=== PATIENT | male | born 1985 | race African-American/Black ===

== ENCOUNTER 2019-12-22 10:48 | Emergency (ER) | payer SELFPAY ==
[~2019-12-22] VITALS: Ht 182.9 cm; Wt 80.0 kg
[2019-12-22] MEDS ORDERED: ONDANSETRON PF 4 MG/2 ML VIAL. IV ONE (11:00)
[2019-12-22] MEDS ORDERED: IV NORMAL SALINE 1000ML BAG 1,000 ML IV ONE (11:00)
[2019-12-22] MEDS ORDERED: HALOPERIDOL LACTATE 5 MG/ML VIAL. IM ONE (12:00)
[2019-12-22 12:15] LABS: BASO % 1 % (0-3); EOS % 0 % (0-3); HEMATOCRIT 44.5 % (39.0-53.0); HEMOGLOBIN 14.8 g/dL (13.0-17.5); LYMPH # 0.6 x10^3/uL (1.0-4.8); LYMPH % 6 % (24-48); MEAN CORPUSCULAR HEMOGLOBIN 26 pg (25-35); MEAN CORPUSCULAR HGB CONC 33 g/dL (31-37); MEAN CORPUSCULAR VOLUME 79 fL (79-100); MONO # 0.7 x10^3/uL (0.0-1.1); MONO % 7 % (0-9); NEUT # 8.8 x10^3/uL (1.8-7.7); NEUT % 87 % (31-73); PLATELET COUNT 151 x10^3/uL (140-400); RED BLOOD COUNT 5.61 x10^6/uL (4.30-5.70); RED CELL DISTRIBUTION WIDTH 14.5 % (11.5-14.5); WHITE BLOOD COUNT 10.1 x10^3/uL (4.0-11.0)
[2019-12-22 12:21] LABS: CALCIUM 8.5 mg/dL (8.5-10.1); GFR 86.1; POTASSIUM 3.7 mmol/L (3.5-5.1)
[2019-12-22 12:27] LABS: ALBUMIN 3.6 g/dL (3.4-5.0); TOTAL BILIRUBIN 0.4 mg/dL (0.2-1.0); TOTAL PROTEIN 7.1 g/dL (6.4-8.2)
[2019-12-22 13:17] LABS: % BANDS 13 % (0-9); % BASOS 1 % (0-3); % LYMPHS 6 % (24-48); % MONOS 9 % (0-10); % SEGS 71 % (35-66)
[2019-12-22 13:18] LABS: PLT ESTIMATE ADEQUATE (ADEQUATE)
[2019-12-22] MEDS ORDERED: IV NORMAL SALINE 500ML BAG 500 ML IV ONE (14:00)
[2019-12-22 14:07] LABS: BILIRUBIN,URINE NEGATIVE (NEG); CLARITY,URINE CLEAR; COLOR,URINE YELLOW; NITRITE,URINE NEGATIVE (NEG); PROTEIN,URINE NEGATIVE (NEG-TRACE); UROBILINOGEN,URINE 0.2 mg/dL (0.2 mg/dL)
--- NOTE | 2019-12-22 14:09 | RAD ---
EXAM: AP View of the chest DATE: 12/22/2019 1:50 PM INDICATION: nonstop hiccups, cough, r/o diaphragmatic lesion COMPARISON: No Prior FINDINGS: The heart is not enlarged. Mediastinal and hilar contours are normal. No focal parenchymal airspace opacity. No pleural effusion or pneumothorax. IMPRESSION: 1. No radiographic evidence for acute cardiopulmonary process. Electronically signed by: Luis Faustin MD (12/22/2019 2:06 PM) [id number]
[2019-12-22] MEDS ORDERED: CONTRAST GIVEN. MC PRN (14:15)
[2019-12-22] MEDS ORDERED: IOHEXOL 300 MG/ML 100ML VIAL. IV ONE (14:15)
[2019-12-22 14:17] LABS: BACTERIA,URINE 0 /HPF (0-FEW); RBC,URINE OCC /HPF (0-2); WBC,URINE OCC /HPF (0-4)
--- NOTE | 2019-12-22 14:57 | RAD ---
EXAM: CT Abdomen and Pelvis with IV contrast CLINICAL HISTORY: Vomiting, abdominal pain, hiccups, bandemia. COMPARISON: none TECHNIQUE: Helical CT of the abdomen and pelvis was performed following the administration of intravenous contrast. Axial, coronal and sagittal reformatted images were generated. PQRS compliance statement - One or more of the following individualized dose reduction techniques were utilized for this study: 1. Automated exposure control 2. Adjustment of the mA and/or kV according to patient size 3. Use of iterative reconstruction technique FINDINGS: Lower chest: Linear opacities left greater than right lower lobe and lingula likely scarring/atelectasis. Abdomen and Pelvis: No focal liver lesion. Gallbladder is normal. No biliary ductal dilatation. Spleen is unremarkable. Adrenal glands are normal. Pancreas is unremarkable. Symmetric nephrograms. No focal renal lesion. No hydronephrosis. Aorta is grossly normal in caliber. Circumaortic left renal vein is seen. Bladder is unremarkable. Moderate colonic stool content is seen. No small or large bowel dilatation. No evidence for bowel obstruction. Appendix is not seen. No no free or loculated abdominal or pelvic fluid collection is seen.. No abdominal or pelvic lymphadenopathy. Bones: No aggressive osseous lesion is seen. IMPRESSION: 1. No free or loculated abdominal or pelvic collection. 2. Appendix is not seen however associated for right lower quadrant inflammatory changes are seen. 3. No abdominal or pelvic lymphadenopathy. Electronically signed by: Luis Faustin MD (12/22/2019 2:54 PM) [facility]
[2019-12-22] MEDS ORDERED: ONDA4TAB12 PO (15:29)
--- NOTE | 2019-12-22 15:38 | PHYS DOC ---
Past Medical History Past Medical History: No Pertinent History Past Surgical History: No Surgical History Smoking Status: Never Smoker Alcohol Use: None Adult General Chief Complaint Chief Complaint: NAUSEA/VOMITING/DIARRHA HPI HPI Patient is a 34 year old female presenting with nausea vomiting diarrhea profuse episodes 5 episodes or more of each Over the last 3 days was at urgent care had a near syncopal so paramedics were called blood pressure normal. Patient is been hiccuping a lot. Denies abdominal pain at this time no chest pain denies cough no fever nonbloody Review of Systems Review of Systems Constitutional: Denies fever or chills [] Eyes: Denies change in visual acuity, redness, or eye pain [] HENT: Denies nasal congestion or sore throat [] Respiratory: Denies cough or shortness of breath [] Cardiovascular: No additional information not addressed in HPI [] GI: : Denies dysuria or hematuria [] All other systems were reviewed and found to be within normal limits, except as documented in this note. Current Medications Current Medications Current Medications Medications (Trade) Dose Ordered Sig/Ervin Start Time Stop Time Status Last Admin Dose Admin Haloperidol Lactate (Haldol Inj) 2.5 mg 1X ONCE 12/22/19 12:00 12/22/19 12:02 DC 12/22/19 12:58 2.5 MG Info (CONTRAST GIVEN -- Rx MONITORING) 1 each PRN DAILY PRN 12/22/19 14:15 12/24/19 14:14 Iohexol (Omnipaque 300 Mg/ml) 75 ml 1X ONCE 12/22/19 14:15 12/22/19 14:16 DC 12/22/19 14:26 75 ML Lorazepam (Ativan Inj) 1 mg 1X ONCE 12/22/19 14:15 12/22/19 14:16 DC 12/22/19 14:42 1 MG Ondansetron HCl (Zofran) 4 mg 1X ONCE 12/22/19 11:00 12/22/19 11:01 DC 12/22/19 11:36 4 MG Sodium Chloride 500 ml @ 500 mls/hr 1X ONCE 12/22/19 14:00 12/22/19 14:59 DC 12/22/19 14:01 500 MLS/HR Allergies Allergies Allergies Coded Allergies Type Severity Reaction Last Updated Verified red dye Allergy Intermediate rash hives 12/22/19 Yes Physical Exam Physical Exam Constitutional: Well developed, well nourished, no acute distress, non-toxic appearance. [] HENT: Normocephalic, atraumatic, bilateral external ears normal, oropharynx moist, no oral exudates, nose normal. [] Eyes: PERRLA, EOMI, conjunctiva normal, no discharge. [] Neck: Normal range of motion, no tenderness, supple, no stridor. [] Cardiovascular:Heart rate regular rhythm, no murmur [] Lungs & Thorax: Bilateral breath sounds clear to auscultation [] Abdomen: Bowel sounds normal, soft, no tenderness, no masses, no pulsatile masses. [] Patient is frequent hiccups but otherwise neuro intact Skin: Warm, dry, no erythema, no rash. [] Back: No tenderness, no CVA tenderness. [] Extremities: No tenderness, no cyanosis, no clubbing, ROM intact, no edema. [] Neurologic: Alert and oriented X 3, normal motor function, normal sensory function, no focal deficits noted. [] Psychologic: Affect normal, judgement normal, mood normal. [] Current Patient Data Vital Signs Vital Signs Date Time Temp Pulse Resp B/P (MAP) Pulse Ox O2 Delivery O2 Flow Rate FiO2 12/22/19 10:50 98.8 85 18 122/73 (89) 100 Room Air 98.8 Lab Values Laboratory Tests Test 12/22/19 11:45 12/22/19 13:00 White Blood Count 10.1 x10^3/uL (4.0-11.0) Red Blood Count 5.61 x10^6/uL (4.30-5.70) Hemoglobin 14.8 g/dL (13.0-17.5) Hematocrit 44.5 % (39.0-53.0) Mean Corpuscular Volume 79 fL (79-100) Mean Corpuscular Hemoglobin 26 pg (25-35) Mean Corpuscular Hemoglobin Concent 33 g/dL (31-37) Red Cell Distribution Width 14.5 % (11.5-14.5) Platelet Count 151 x10^3/uL (140-400) Neutrophils (%) (Auto) 87 % (31-73) H Lymphocytes (%) (Auto) 6 % (24-48) L Monocytes (%) (Auto) 7 % (0-9) Eosinophils (%) (Auto) 0 % (0-3) Basophils (%) (Auto) 1 % (0-3) Neutrophils # (Auto) 8.8 x10^3/uL (1.8-7.7) H Lymphocytes # (Auto) 0.6 x10^3/uL (1.0-4.8) L Monocytes # (Auto) 0.7 x10^3/uL (0.0-1.1) Eosinophils # (Auto) 0.0 x10^3/uL (0.0-0.7) Basophils # (Auto) 0.0 x10^3/uL (0.0-0.2) Segmented Neutrophils % 71 % (35-66) H Band Neutrophils % 13 % (0-9) H Lymphocytes % 6 % (24-48) L Monocytes % 9 % (0-10) Basophils % 1 % (0-3) Platelet Estimate Adequate (ADEQUATE) Sodium Level 135 mmol/L (136-145) L Potassium Level 3.7 mmol/L (3.5-5.1) Chloride Level 100 mmol/L (98-107) Carbon Dioxide Level 28 mmol/L (21-32) Anion Gap 7 (6-14) Blood Urea Nitrogen 6 mg/dL (8-26) L Creatinine 1.0 mg/dL (0.7-1.3) Estimated GFR (Cockcroft-Gault) 86.1 BUN/Creatinine Ratio 6 (6-20) Glucose Level 110 mg/dL (70-99) H Calcium Level 8.5 mg/dL (8.5-10.1) Total Bilirubin 0.4 mg/dL (0.2-1.0) Aspartate Amino Transferase (AST) 22 U/L (15-37) Alanine Aminotransferase (ALT) 20 U/L (16-63) Alkaline Phosphatase 49 U/L (46-116) Total Protein 7.1 g/dL (6.4-8.2) Albumin 3.6 g/dL (3.4-5.0) Albumin/Globulin Ratio 1.0 (1.0-1.7) Lipase 72 U/L (73-393) L Urine Collection Type Unknown Urine Color Yellow Urine Clarity Clear Urine pH 7.0 Urine Specific Harwood 1.010 Urine Protein Negative mg/dL (NEG-TRACE) Urine Glucose (UA) Negative mg/dL (NEG) Urine Ketones (Stick) 15 mg/dL (NEG) Urine Blood Negative (NEG) Urine Nitrite Negative (NEG) Urine Bilirubin Negative (NEG) Urine Urobilinogen Dipstick 0.2 mg/dL (0.2 mg/dL) Urine Leukocyte Esterase Negative (NEG) Urine RBC Occ /HPF (0-2) Urine WBC Occ /HPF (0-4) Urine Bacteria 0 /HPF (0-FEW) Laboratory Tests 12/22/19 11:45 Laboratory Tests 12/22/19 11:45 EKG EKG [] Radiology/Procedures Radiology/Procedures [] Course & Med Decision Making Course & Med Decision Making Pertinent Labs and Imaging studies reviewed. (See chart for details) []Patient required Haldol and Ativan to stop his hiccups in the emergency room did have a benign abdominal examination but had 13% bands like spinning about workup to a chest x-ray CT abdomen and pelvis and urinalysis all which were negative on reevaluation at 3:30 PM patient was resting comfortably with no further hiccups and he'll be discharged in stable condition with Zofran as needed for nausea and vomiting strict return precautions were discussed with the patient's mother voiced understanding. Dragon Disclaimer Dragon Disclaimer This electronic medical record was generated, in whole or in part, using a voice recognition dictation system. Departure Departure Impression: Primary Impression: Vomiting Disposition: 01 HOME, SELF-CARE Condition: STABLE Patient Instructions: Nausea and Vomiting, [id number] Scripts Ondansetron (ONDANSETRON ODT) 4 Mg Tab.rapdis 1 TAB PO PRN Q6-8HRS PRN for NAUSEA/VOMITING, #16 TAB Prov: NEVA JOHN MD 12/22/19 NEVA JOHN MD Dec 22, 2019 15:38
[2019-12-22 15:45] VITALS: BP 123/76
--- NOTE | 2019-12-22 23:44 | EKG ---
[facility] [address] [place] [address] Test Date: 2019-12-22 Test Time: 11:50:59 Pat Name: BLANCA FONG Department: Room: Gender: M Catering Associate: : 1985 Requested By: NEVA JOHN Order Number: [id number] Reading MD: Measurements Intervals Jackson Rate: 94 P: 88 WI: 158 QRS: 58 QRSD: 88 T: 56 QT: 326 QTc: 408 Interpretive Statements SINUS RHYTHM NORMAL ECG RI6.01 No previous ECG available for comparison
== END 2019-12-22 16:02 | disposition home or self-care (01) ==
LOC: ER 10:48
DX: R11.2 Nausea with vomiting, unspecified (principal); R19.7 Diarrhea, unspecified; Z91.041 Radiographic dye allergy status; Z79.899 Other long term (current) drug therapy
CPT/HCPCS: 36415; 71045; 74177; 80053; 81001; 83690; 85007; 85025; 93005; 96361; 96372; 96374; 96375; 99285; J1630; J2060; J2405; J7030; J7040; Q9967